=== PATIENT | male | born 1960 | race Caucasian/White ===

== ENCOUNTER → 2019-03-07 | Outpatient (CLI) | payer OTHER ==
[2019-03-07 13:18] LABS: BASO % 1 % (0-3); EOS % 0 % (0-3); HEMATOCRIT 42.8 % (39.0-53.0); HEMOGLOBIN 14.5 g/dL (13.0-17.5); LYMPH # 0.6 x10^3/uL (1.0-4.8); LYMPH % 17 % (24-48); MEAN CORPUSCULAR HEMOGLOBIN 29 pg (25-35); MEAN CORPUSCULAR HGB CONC 34 g/dL (31-37); MEAN CORPUSCULAR VOLUME 86 fL (79-100); MONO # 0.3 x10^3/uL (0.0-1.1); MONO % 9 % (0-9); NEUT # 2.6 x10^3uL (1.8-7.7); NEUT % 74 % (31-73); PLATELET COUNT 102 x10^3/uL (140-400); RED BLOOD COUNT 4.96 x10^6/uL (4.30-5.70); RED CELL DISTRIBUTION WIDTH 14.9 % (11.5-14.5); WHITE BLOOD COUNT 3.6 x10^3/uL (4.0-11.0)
[2019-03-07 13:34] LABS: AMYLASE 58 U/L (25-115); LIPASE 234 U/L (73-393)
[2019-03-07 14:27] LABS: SEDIMENTATION RATE 3 (0-15)
[2019-03-07 14:42] LABS: BILIRUBIN,URINE NEG (NEG); CLARITY,URINE HAZY; COLOR,URINE AMBER
[2019-03-07 14:44] LABS: BACTERIA,URINE 0 /HPF (0-FEW); SQUAMOUS EPITHELIAL CELL,UR FEW /LPF
== END | disposition home or self-care (01) ==
LOC: LAB 12:23
PROVIDERS: ATTEND Physician Assistant
DX: I10 Essential (primary) hypertension (principal); I25.10 Atherosclerotic heart disease of native coronary artery without angina pectoris; R10.13 Epigastric pain; R53.83 Other fatigue; R19.7 Diarrhea, unspecified; R06.00 Dyspnea, unspecified; K21.9 Gastro-esophageal reflux disease without esophagitis
CPT/HCPCS: 36415; 81001; 82150; 83690; 83880; 84443; 85025; 85651; 86677; 87086

== ENCOUNTER 2019-06-15 22:16 | Emergency (ER) | payer OTHER ==
[~2019-06-15] VITALS: Ht 185.4 cm; Wt 134.0 kg
--- NOTE | 2019-06-15 22:42 | PHYS DOC ---
Adult General HPI HPI Patient is a 59 year old male presents with a chief complaint of cough with sputum production chest wall and abdominal discomfort. Patient states symptoms that ongoing for the last 2 days progressively becoming worse. Patient has associated fever and he is afebrile in the ER. Patient took motrin just prior to arrival. Review of Systems Review of Systems Constitutional: Denies fever or chills [] Eyes: Denies change in visual acuity, redness, or eye pain [] HENT: Denies nasal congestion or sore throat [] Respiratory: Denies cough or shortness of breath [] Cardiovascular: No additional information not addressed in HPI [] GI: Denies abdominal pain, nausea, vomiting, bloody stools or diarrhea [] : Denies dysuria or hematuria [] Musculoskeletal: Denies back pain or joint pain [] Integument: Denies rash or skin lesions [] Neurologic: Denies headache, focal weakness or sensory changes [] Endocrine: Denies polyuria or polydipsia [] All other systems were reviewed and found to be within normal limits, except as documented in this note. Physical Exam Physical Exam Constitutional: Well developed, well nourished, no acute distress, non-toxic appearance. [] HENT: Normocephalic, atraumatic, bilateral external ears normal, oropharynx moist, no oral exudates, nose normal. [] Eyes: PERRLA, EOMI, conjunctiva normal, no discharge. [] Neck: Normal range of motion, no tenderness, supple, no stridor. [] Cardiovascular:Heart rate regular rhythm, no murmur [patient's chest is tender diffusely to palpation. Patient's chest discomfort is reproducible with inspiratory and expiratory no wheezing] Lungs & Thorax: Bilateral breath sounds clear to auscultation [] Abdomen: Bowel sounds normal, soft, no tenderness, no masses, no pulsatile masses. [] Skin: Warm, dry, no erythema, no rash. [] Back: No tenderness, no CVA tenderness. [] Extremities: No tenderness, no cyanosis, no clubbing, ROM intact, no edema. [] Neurologic: Alert and oriented X 3, normal motor function, normal sensory function, no focal deficits noted. [] Psychologic: Affect normal, judgement normal, mood normal. [] EKG EKG [] Radiology/Procedures Radiology/Procedures [] Course & Med Decision Making Course & Med Decision Making Pertinent Labs and Imaging studies reviewed. (See chart for details) []Influenza A positive Patient treated with tamiflu and robitusion with codeine. Patient discharged home with Rx tamiflu and robitiussion with codeine. Dragon Disclaimer Dragon Disclaimer This electronic medical record was generated, in whole or in part, using a voice recognition dictation system. Departure Departure: Impression: Primary Impression: Influenza A Disposition: HOME, SELF-CARE Condition: STABLE Referrals: ELDA GARCIA (PCP) Patient Instructions: Influenza A (H1N1) Scripts Codeine Phosphate/Guaifenesin (Guaifen-Codeine 200-20 mg/10Ml) 10 Ml Liquid 10 ML PO Q6-8HRS, #120 LIQUID Prov: KEM BASILIO DO 06/15/19 Oseltamivir Phosphate (TAMIFLU) 75 Mg Capsule 1 CAP PO BID, #10 CAP Prov: KEM BASILIO DO 06/15/19 KEM BASILIO DO Jun 15, 2019 22:42
[2019-06-15] MEDS ORDERED: guaiFENesin/CODEINE 100mg/10mg 5 ML LIQUID PO PRN (22:45)
[2019-06-15 23:01] LABS: INFLUENZA A PATIENT POSITIVE (NEGATIVE); INFLUENZA B PATIENT NEGATIVE (NEGATIVE)
[2019-06-15 23:06] LABS: BASO % 0 % (0-3); EOS % 0 % (0-3); HEMATOCRIT 38.2 % (39.0-53.0); HEMOGLOBIN 12.9 g/dL (13.0-17.5); LYMPH # 0.3 x10^3/uL (1.0-4.8); LYMPH % 9 % (24-48); MEAN CORPUSCULAR HEMOGLOBIN 29 pg (25-35); MEAN CORPUSCULAR HGB CONC 34 g/dL (31-37); MEAN CORPUSCULAR VOLUME 86 fL (79-100); MONO # 0.3 x10^3/uL (0.0-1.1); MONO % 12 % (0-9); NEUT # 2.3 x10^3uL (1.8-7.7); NEUT % 79 % (31-73); PLATELET COUNT 113 x10^3/uL (140-400); RED BLOOD COUNT 4.43 x10^6/uL (4.30-5.70); RED CELL DISTRIBUTION WIDTH 14.8 % (11.5-14.5); WHITE BLOOD COUNT 2.9 x10^3/uL (4.0-11.0)
[2019-06-15 23:11] LABS: CALCIUM 8.3 mg/dL (8.5-10.1); CREATININE 1.2 mg/dL (0.7-1.3); POTASSIUM 3.4 mmol/L (3.5-5.1)
[2019-06-15] MEDS ORDERED: OSELTAMIVIR 75 MG CAPSULE PO ONE (23:15)
[2019-06-15 23:17] LABS: ALBUMIN 3.3 g/dL (3.4-5.0); ALBUMIN/GLOBULIN RATIO 1.3 (1.0-1.7); TOTAL BILIRUBIN 1.8 mg/dL (0.2-1.0); TOTAL PROTEIN 5.8 g/dL (6.4-8.2)
[2019-06-15] MEDS ORDERED: CODE10LI PO (23:17)
[2019-06-15] MEDS ORDERED: OSEL75CA PO (23:17)
[2019-06-15] MEDS ORDERED: KETOROLAC 15 MG/ML VIAL. IVP ONE (23:30)
[2019-06-16] VITALS: BP 115/68
--- NOTE | 2019-06-16 01:43 | EKG ---
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
--- NOTE | 2019-06-16 08:06 | RAD ---
Chest AP portable at 2310: Reason for examination: Cough and flu symptoms. Comparison is made to previous study dated 02/15/2008. The heart size is normal. Mediastinum is unremarkable. Lung dahl are clear. No acute bony abnormalities are seen. Impression: No acute cardiopulmonary disease. Electronically signed by: Kierra Carnes MD (06/16/2019 8:03 AM) [id number]
== END 2019-06-16 00:26 | disposition home or self-care (01) ==
LOC: ER 22:16
DX: J10.1 Influenza due to other identified influenza virus with other respiratory manifestations (principal)
CPT/HCPCS: 36415; 71045; 80053; 84484; 85025; 87804; 93005; 96374; 99285; J1885

== ENCOUNTER 2020-03-17 16:06 | Observation (INO) | payer OTHER ==
[~2020-03-17] VITALS: Ht 185.4 cm; Wt 133.1 kg
[~2020-03-17 16:06] MED LIST: CODE10LI PO; OSEL75CA PO
--- NOTE | 2020-03-17 16:36 | PHYS DOC ---
Past History Past Medical History: CAD, GERD, High Cholesterol, Hypertension, Other Additional Past Medical Histor: hernias(repaired) Past Surgical History: Appendectomy, Cholecystectomy, Other Additional Past Surgical Histo: hernia repairs, colon resection, cardiac stents 2017 Drug Use: None General Adult EDM: Chief Complaint: CHEST PAIN HPI: HPI: Patient is a 60-year-old male who presents with chief complaint of chest pain. Patient about 1130 today began having constant chest pressure as well as back discomfort. Pain is 5 out of 10 in severity. Pain is not made worse or better with anything. Patient said he had some mild diaphoresis and mild nausea but has no shortness of breath above his baseline. Patient has any recent fevers, chills, cough, vomiting or diarrhea. Review of Systems: Review of Systems: Constitutional: Denies fever or chills Eyes: Denies change in visual acuity HENT: Denies nasal congestion or sore throat Respiratory: Denies cough or shortness of breath Cardiovascular: Complains of chest pain but no edema GI: Denies abdominal pain, , vomiting, bloody stools or diarrhea, patient has mild nausea : Denies dysuria Musculoskeletal: Complains of back pain but no joint pain Integument: Denies rash Neurologic: Denies headache, focal weakness or sensory changes Endocrine: Denies polyuria or polydipsia Lymphatic: Denies swollen glands Psychiatric: Denies depression or anxiety Allergies: Allergies: Allergies Coded Allergies Type Severity Reaction Last Updated Verified No Known Drug Allergies 06/15/19 No Physical Exam: PE: Constitutional: Well developed, well nourished, no acute distress, non-toxic ap pearance. [] HENT: Normocephalic, atraumatic, bilateral external ears normal, oropharynx moist, no oral exudates, nose normal. [] Eyes: PERRLA, EOMI, conjunctiva normal, no discharge. [] Neck: Normal range of motion, no tenderness, supple, no stridor. [] Cardiovascular:Heart rate regular rhythm, no murmur [] Lungs & Thorax: Bilateral breath sounds clear to auscultation [] Abdomen: Bowel sounds normal, soft, mild epigastric tenderness without guarding or rebound no masses, no pulsatile masses. [] Skin: Warm, dry, no erythema, no rash. [] Back: No tenderness, no CVA tenderness. [] Extremities: No tenderness, no cyanosis, no clubbing, ROM intact, no edema. [] Neurologic: Alert and oriented X 3, normal motor function, normal sensory function, no focal deficits noted. [] Psychologic: Affect normal, judgement normal, mood normal. [] Current Patient Data: Labs: Laboratory Tests Test 03/17/20 16:50 White Blood Count 4.3 x10^3/uL Red Blood Count 4.75 x10^6/uL Hemoglobin 13.8 g/dL Hematocrit 41.1 % Mean Corpuscular Volume 86 fL Mean Corpuscular Hemoglobin 29 pg Mean Corpuscular Hemoglobin Concent 34 g/dL Red Cell Distribution Width 15.1 % Platelet Count 140 x10^3/uL Neutrophils (%) (Auto) 63 % Lymphocytes (%) (Auto) 27 % Monocytes (%) (Auto) 9 % Eosinophils (%) (Auto) 2 % Basophils (%) (Auto) 0 % Neutrophils # (Auto) 2.7 x10^3uL Lymphocytes # (Auto) 1.1 x10^3/uL Monocytes # (Auto) 0.4 x10^3/uL Eosinophils # (Auto) 0.1 x10^3/uL Basophils # (Auto) 0.0 x10^3/uL Prothrombin Time 11.2 SEC Prothromb Time International Ratio 1.1 D-Dimer (Minerva) 0.43 mg/L Sodium Level 142 mmol/L Potassium Level 3.3 mmol/L Chloride Level 105 mmol/L Carbon Dioxide Level 28 mmol/L Anion Gap 9 Blood Urea Nitrogen 15 mg/dL Creatinine 1.2 mg/dL Estimated GFR (Cockcroft-Gault) 61.8 Glucose Level 101 mg/dL Calcium Level 8.8 mg/dL Magnesium Level 2.0 mg/dL Troponin I Quantitative < 0.017 ng/mL Lipase 303 U/L Ethyl Alcohol Level < 10 mg/dL Current Medications Medications (Trade) Dose Ordered Sig/Munir Route PRN Reason Start Time Stop Time Status Last Admin Dose Admin Aspirin (Aspirin Chewable) 324 mg 1X ONCE PO 03/17/20 16:45 03/17/20 16:46 DC 03/17/20 16:42 Nitroglycerin (Nitrostat) 0.4 mg PRN Q5MIN PRN SL CHEST PAIN 03/17/20 16:45 03/17/20 16:43 Vital Signs: Vital Signs Date Time Temp Pulse Resp B/P (MAP) Pulse Ox O2 Delivery O2 Flow Rate FiO2 03/17/20 16:28 98.1 58 18 115/68 (84) 98 Room Air EKG: EKG: [] EKG interpreted by me normal sinus rhythm rate of 69 normal axis normal intervals, nonspecific ST changes Radiology/Procedures: Radiology/Procedures: [][address] [id number] IMAGING REPORT Signed PATIENT: LILLIANA GARCIA ACCOUNT: [id number] : 1960 LOCATION: ER AGE: 60 SEX: M EXAM STATUS: REG ER ORD. PHYSICIAN: CHRISTINE SOSA MD REASON: chest pain PROCEDURE: PORTABLE CHEST 1V AP chest. HISTORY: Chest pain AP view was taken of the chest. Comparison is made with a study from June. There is retrocardiac atelectasis or infiltrate in the left lung base. A lateral view could be of benefit. Heart is upper normal in size. A small left effusion is possible. IMPRESSION: 1. Left base density, Atelectasis or infiltrate in the left lung base is possible. 2. Lateral view would be of benefit. Electronically signed by: Patricio Coe MD (03/17/2020 5:16 PM) [id number] DICTATED AND SIGNED BY: PATRICIO COE MD DATE: 03/17/20 1716 CC: CHRISTINE SOSA MD; ELDA GARCIA ~ Heart Score: HEART Score for Chest Pain: HEART Score for Chest Pain Response (Comments) Value History Moderately Suspicious 1 ECG Nonspecific Repolarizatio 1 Age >45 - < 65 1 Risk Factors >3 Risk Factors or Hx CAD 2 Troponin < Normal Limit 0 Total 5 Risk Factors: Risk Factors: DM, Current or recent (<one month) smoker, HTN, HLP, family history of CAD, obesity. Risk Scores: Score 0 - 3: 2.5% MACE over next 6 weeks - Discharge Home Score 4 - 6: 20.3% MACE over next 6 weeks - Admit for Clinical Observation Score 7 - 10: 72.7% MACE over next 6 weeks - Early Invasive Strategies Course & Med Decision Making: Course & Med Decision Making Pertinent Labs and Imaging studies reviewed. (See chart for details) [] 60-year-old male presents with a chief complaint of chest pain. Patient has history of coronary artery disease and is better after nitroglycerin. Patient got aspirin in the ER. Patient reassessed and chest pain is improved. Patient will need a admission for rule out SD. Patient's D-dimer is negative, doubt thoracic aortic dissection for embolism. Dragon Disclaimer: Dragon Disclaimer: This electronic medical record was generated, in whole or in part, using a voice recognition dictation system. Departure Departure: Impression: Primary Impression: Substernal chest pain Disposition: ADMITTED INPT THIS HOSP Admitting Physician: Cuong Martinez Condition: STABLE Referrals: ELDA GARCIA (PCP) CHRISTINE SOSA MD Mar 17, 2020 16:36
[2020-03-17] MEDS ORDERED: ASPIRIN CHEWABLE 81 MG TABLET. PO ONE (16:45)
[2020-03-17] MEDS ORDERED: NITROGLYCERIN SUBLINGUAL 0.4 MG BOTTLE OF 25. SL PRN (16:45)
[2020-03-17 17:09] LABS: BASO % 0 % (0-3); EOS # 0.1 x10^3/uL (0.0-0.7); EOS % 2 % (0-3); HEMATOCRIT 41.1 % (39.0-53.0); HEMOGLOBIN 13.8 g/dL (13.0-17.5); LYMPH # 1.1 x10^3/uL (1.0-4.8); LYMPH % 27 % (24-48); MEAN CORPUSCULAR HEMOGLOBIN 29 pg (25-35); MEAN CORPUSCULAR HGB CONC 34 g/dL (31-37); MEAN CORPUSCULAR VOLUME 86 fL (79-100); MONO # 0.4 x10^3/uL (0.0-1.1); MONO % 9 % (0-9); NEUT # 2.7 x10^3uL (1.8-7.7); NEUT % 63 % (31-73); PLATELET COUNT 140 x10^3/uL (140-400); RED BLOOD COUNT 4.75 x10^6/uL (4.30-5.70); RED CELL DISTRIBUTION WIDTH 15.1 % (11.5-14.5); WHITE BLOOD COUNT 4.3 x10^3/uL (4.0-11.0)
--- NOTE | 2020-03-17 17:11 | EKG ---
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
[2020-03-17 17:18] LABS: CALCIUM 8.8 mg/dL (8.5-10.1); CREATININE 1.2 mg/dL (0.7-1.3); GFR 61.8; POTASSIUM 3.3 mmol/L (3.5-5.1)
--- NOTE | 2020-03-17 17:18 | RAD ---
AP chest. HISTORY: Chest pain AP view was taken of the chest. Comparison is made with a study from June. There is retrocardiac atelectasis or infiltrate in the left lung base. A lateral view could be of benefit. Heart is upper normal in size. A small left effusion is possible. IMPRESSION: 1. Left base density, Atelectasis or infiltrate in the left lung base is possible. 2. Lateral view would be of benefit. Electronically signed by: Patricio Coe MD (03/17/2020 5:16 PM) [id number]
[2020-03-17 18:13] LABS: ALBUMIN 3.6 g/dL (3.4-5.0); DIRECT BILIRUBIN 0.3 mg/dL (0.0-0.2); TOTAL BILIRUBIN 2.4 mg/dL (0.2-1.0); TOTAL PROTEIN 6.5 g/dL (6.4-8.2)
[2020-03-17 18:25] LABS: BILIRUBIN,URINE NEG (NEG); CLARITY,URINE CLEAR; COLOR,URINE YELLOW; GLUCOSE,URINE NEG (NEG)
[2020-03-17 18:26] LABS: BACTERIA,URINE 0 /HPF (0-FEW); NITRITE,URINE NEG (NEG); RBC,URINE 0 /HPF (0-2); WBC,URINE 0 /HPF (0-4)
[2020-03-17 19:05] VITALS: BP 125/83
[2020-03-17] MEDS ORDERED: PANT40TA6 PO (20:06)
[2020-03-17] MEDS ORDERED: ATOR40TA59 PO (20:06)
[2020-03-17] MEDS ORDERED: HYDR-2145 PO (20:06)
[2020-03-17] MEDS ORDERED: ASPI-630 PO (20:06)
[2020-03-17] MEDS ORDERED: EZET10TA49 PO (20:12)
[2020-03-17] MEDS ORDERED: ATORVASTATIN CALCIUM 20 MG TABLET PO SCH (21:00)
[2020-03-17] MEDS ORDERED: EZETIMIBE 10 MG TABLET PO SCH (21:00)
--- NOTE | 2020-03-17 22:02 | HP ---
ADMIT DATE: 03/17/2020 ATTENDING PHYSICIAN: Dr. Angelo. CHIEF COMPLAINT: Chest pain. HISTORY OF PRESENT ILLNESS: The patient is a 60-year-old gentleman with new onset of chest pain, started about 11:30 today, constant chest pressure as well as back discomfort, rated 5/10 in severity. No recent exertion. He had some mild diaphoresis and nausea, but no shortness of breath. No recent trauma, no recent exposure, fevers or chills. He does have a cardiac history with a cardiac stent placed in 2017. He sees a telephone operator receptionist at [facility]. Other risk factors including known coronary artery disease with previous stents, gastroesophageal reflux disease, hyperlipidemia, hypertension, hernia repair. PAST SURGICAL HISTORY: Cholecystectomy and appendectomy. ALLERGIES: He has no known drug allergies. CURRENT MEDICINES: Include the following: He was taking aspirin daily, Lipitor, guaifenesin, Zetia, hydrochlorothiazide, Tamiflu, and Protonix. SOCIAL HISTORY: He is a nonsmoker, nondrinker. 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 FAMILY HISTORY: Mom of complications of Alzheimer's. Father of stroke at age 81. REVIEW OF SYSTEMS: Significant for the localized symptoms starting earlier today. No recent travel. No trauma. He denied any associated symptoms. All other systems reviewed and turned to be negative. PHYSICAL EXAMINATION: GENERAL: When I saw her, this is a pleasant, middle-aged gentleman. INITIAL VITAL SIGNS: Showed a blood pressure of 125/83, pulse was 51 and regular, temperature 98.8 degrees Fahrenheit, oxygen saturation 95% on room air. HEENT: Head is without trauma. Pupils are reactive. Sclerae nonicteric. Oropharynx clear. NECK: Supple, no bruits identified. LUNGS: Otherwise clear. CARDIOVASCULAR: Showed regular heart tones. No gallops. Peripheral pulses are palpable and full. ABDOMEN: Soft, nontender, no organomegaly. Bowel sounds are hypoactive. EXTREMITIES: Showed no cyanosis or edema. SKIN: Warm and dry. NEUROLOGIC FUNCTION: Focally intact. No deficits. PERTINENT LABORATORY STUDIES: Initial chest x-ray showed some atelectasis in the left lung base. He had no other symptoms. Hemoglobin is 13.8 g, white count 4300. The first set of cardiac enzymes were negative for coronary ischemia. Bilirubin slightly elevated at 2.4, etiology is uncertain. Sodium 142, potassium 3.3 mEq. ASSESSMENT: 1. A 60-year-old gentleman with atypical chest pain. 2. Known coronary artery disease with previous stents 3 years ago. 3. Hyperlipidemia. 4. Slight elevation of bilirubin, etiology to be determined. 5. Hypertension. PLAN: 1. Observation status. 2. Serial cardiac enzymes. 3. If elevated, he can have a Cardiology consult, but he otherwise would prefer to see his telephone operator receptionist. Home meds will be continued. LANDRY ANGELO MD DR: MARGARITO/rancho JOB#: [id number] / [id number] ELDA Padron
--- NOTE | 2020-03-17 23:25 | NUR ---
Pt admitted to [facility] via EMS accompanied by ER staff. Pt ambulated from gurney to bed w/o difficulty. VS obtained. POC discussed. Pt verbalized understanding. Med list was obtained, reconciled, and restarted. Pt had no complaint of chest pain during time of assessment but did state "There is still a little chest pressure." Pt expressed how he felt as if it was going away. Pt is now resting comfortably in room w/ call light in reach.
[2020-03-18 00:12] VITALS: BP 102/66
[2020-03-18 05:47] VITALS: BP 112/75
--- NOTE | 2020-03-18 08:00 | PDOC2 ---
CARDIAC CONSULT DATE OF CONSULT DOS: DATE: 03/18/20 TIME: 07:56 REASON FOR CONSULT Reason for Consult Chest pain REFERRING PHYSICIAN Referring Physician Dr. Pelletier SOURCE Source: Chart review, Patient HPI History of Present Illness This is a 60 yo male who presented secondary to chest pain. Patient reports he has been experiencing intermittent chest pain for the last couple of weeks. Describes as pressure in his central chest. No specific precipitating or wo rsening factors. Yesterday, pain became more intense. Was having significant pain in his upper back, between the shoulder blades. Was associated with nausea and diaphoresis. No palpitations or SOA yesterday. Given h/o CAD, patient was concerned for IL so he came to the ED for further evaluation and treatment. PAST MEDICAL HISTORY Cardiovascular: CAD, HTN, hyperipidemia Pulmonary: Other (CHULA) GI: GERD PAST SURGICAL HISTORY Past Surgical History PCI/stent to RCA, colectomy FAMILY HISTORY Family History: Coronary Artery Disease, Hypertension SOCIAL HISTORY Smoke: No ALCOHOL: none Drugs: None Lives: with Family CURRENT MEDICATIONS Current Medications Current Medications Aspirin (Aspirin Chewable) 324 mg 1X ONCE PO Last administered on 03/17/20at 16:42; Start 03/17/20 at 16:45; Stop 03/17/20 at 16:46; Status DC Nitroglycerin (Nitrostat) 0.4 mg PRN Q5MIN PRN SL CHEST PAIN Last administered on 03/17/20at 16:43; Start 03/17/20 at 16:45 Aspirin (Aspirin Chewable) 81 mg DAILY PO ; Start 03/18/20 at 09:00 Hydrochlorothiazide (Hydrodiuril) 25 mg DAILY PO ; Start 03/18/20 at 09:00 Pantoprazole Sodium (Protonix) 40 mg DAILY PO ; Start 03/18/20 at 09:00 Atorvastatin Calcium (Lipitor) 40 mg QHS PO Last administered on 03/17/20at 20:55; Start 03/17/20 at 21:00 EZETIMIBE (Zetia) 10 mg QHS PO Last administered on 03/17/20at 20:55; Start 03/17/20 at 21:00 Active Scripts Active Guaifen-Codeine 200-20 mg/10Ml (Codeine Phosphate/Guaifenesin) 10 Ml Liquid 10 Ml PO Q6-8HRS Tamiflu (Oseltamivir Phosphate) 75 Mg Capsule 1 Cap PO BID Reported Ezetimibe 10 Mg Tablet 10 Mg PO QHS Aspirin 81 Mg Tab.chew 81 Mg PO DAILY Atorvastatin Calcium 40 Mg Tablet 1 Tab PO QHS Pantoprazole Sodium 40 Mg Tablet.dr 40 Mg PO DAILY Hydrochlorothiazide Tablet (Hydrochlorothiazide) 25 Mg Tablet 25 Mg PO DAILY ALLERGIES Allergies: Coded Allergies: No Known Drug Allergies (Unverified , 06/15/19) ROS Review of Systems 14 point ROS conducted with pertinent positives noted above in hPI PHYSICAL EXAM General: Alert, Oriented X3, Cooperative, No acute distress HEENT: Atraumatic, Mucous membr. moist/pink Lungs: Clear to auscultation, Normal air movement Heart: Regular rate, Normal S1 Abdomen: Soft, No tenderness Extremities: No edema, Normal pulses Neuro: Normal speech, Normal tone, Sensation intact Psych/Mental Status: Mental status NL, Mood NL MUSCULOSKELETAL: Osteoarthritic changes both hands VITALS Vital Signs Vital Signs Date Time Temp Pulse Resp B/P (MAP) Pulse Ox O2 Delivery O2 Flow Rate FiO2 03/18/20 05:47 97.6 50 20 112/75 (87) 98 Room Air LABS LABS Laboratory Tests Test 03/17/20 16:50 03/17/20 17:59 03/17/20 20:20 03/17/20 23:59 White Blood Count 4.3 x10^3/uL (4.0-11.0) Red Blood Count 4.75 x10^6/uL (4.30-5.70) Hemoglobin 13.8 g/dL (13.0-17.5) Hematocrit 41.1 % (39.0-53.0) Mean Corpuscular Volume 86 fL (79-100) Mean Corpuscular Hemoglobin 29 pg (25-35) Mean Corpuscular Hemoglobin Concent 34 g/dL (31-37) Red Cell Distribution Width 15.1 % (11.5-14.5) Platelet Count 140 x10^3/uL (140-400) Neutrophils (%) (Auto) 63 % (31-73) Lymphocytes (%) (Auto) 27 % (24-48) Monocytes (%) (Auto) 9 % (0-9) Eosinophils (%) (Auto) 2 % (0-3) Basophils (%) (Auto) 0 % (0-3) Neutrophils # (Auto) 2.7 x10^3uL (1.8-7.7) Lymphocytes # (Auto) 1.1 x10^3/uL (1.0-4.8) Monocytes # (Auto) 0.4 x10^3/uL (0.0-1.1) Eosinophils # (Auto) 0.1 x10^3/uL (0.0-0.7) Basophils # (Auto) 0.0 x10^3/uL (0.0-0.2) Prothrombin Time 11.2 SEC (9.4-11.4) Prothromb Time International Ratio 1.1 (0.9-1.1) D-Dimer (Minerva) 0.43 mg/L (0.00-0.50) Sodium Level 142 mmol/L (136-145) Potassium Level 3.3 mmol/L (3.5-5.1) Chloride Level 105 mmol/L (98-107) Carbon Dioxide Level 28 mmol/L (21-32) Anion Gap 9 (6-14) Blood Urea Nitrogen 15 mg/dL (8-26) Creatinine 1.2 mg/dL (0.7-1.3) Estimated GFR (Cockcroft-Gault) 61.8 Glucose Level 101 mg/dL (70-99) Calcium Level 8.8 mg/dL (8.5-10.1) Magnesium Level 2.0 mg/dL (1.8-2.4) Total Bilirubin 2.4 mg/dL (0.2-1.0) Direct Bilirubin 0.3 mg/dL (0.0-0.2) Aspartate Amino Transf (AST/SGOT) 30 U/L (15-37) Alanine Aminotransferase (ALT/SGPT) 37 U/L (16-63) Alkaline Phosphatase 84 U/L (46-116) Troponin I Quantitative < 0.017 ng/mL (0-0.055) < 0.017 ng/mL (0-0.055) < 0.017 ng/mL (0-0.055) Total Protein 6.5 g/dL (6.4-8.2) Albumin 3.6 g/dL (3.4-5.0) Lipase 303 U/L (73-393) Ethyl Alcohol Level < 10 mg/dL (0-10) Urine Collection Type Unknown Urine Color Yellow Urine Clarity Clear Urine pH 5.5 Urine Specific [place] >=1.030 Urine Protein Neg (NEG-TRACE) Urine Glucose (UA) Neg mg/dL (NEG) Urine Ketones (Stick) Neg mg/dL (NEG) Urine Blood Neg (NEG) Urine Nitrite Neg (NEG) Urine Bilirubin Neg (NEG) Urine Urobilinogen Dipstick 1.0 mg/dL (0.2 mg/dL) Urine Leukocyte Esterase Neg (NEG) Urine RBC 0 /HPF (0-2) Urine WBC 0 /HPF (0-4) Urine Squamous Epithelial Cells None /LPF Urine Bacteria 0 /HPF (0-FEW) ECHOCARDIOGRAM Echocardiogram 03/27/18 - 2-D + DOPPLER ECHOCARDIOGRAM Interpretation Summary LVEF=65% Bordrline Concentric LVH Normal LV Chamber Size Mild Right Ventricular Dilataion And Hypokinesis: See Contrast View Series # 80- 82 and #86, #88 Mild Left Atrial Filatation Valves Are Unremarkable Trace PFO Left To Right: Equivocal No Pericardial Effusion TAPSE=2.4cm STRESS TEST Stress Test 07/15/19 - Procedure: D-SPECT MULTI GATED THALLIUM REGADENOSON MPI STRESS TEST FINDINGS: Pharmacological Stress Electrocardiogram: The patient's resting heart rate was 62 bpm and the resting blood pressure was 138/80. The patients peak stress heart rate was 97 bpm and the peak stress blood pressure was 126/68. With pharmacological stress the patient noted 2-4 out of 10 chest pain. Baseline electrocardiogram shows normal sinus rhythm. Under pharmacological stress there are no diagnostic EKG changes. Conclusion: This is a nonischemic regadenoson stress electrocardiogram. HEART CATH Heart Cath CORONARY ARTERY ANATOMY: The left main bifurcates into LAD and left circumflex originates normally from the left coronary cusp without significant disease. The LAD has a proximal 20% stenosis. Type 3 LAD that wraps around the apex. It gives rise to multiple septal branches. No significant atherosclerotic disease was noted. Left circumflex nondominant vessel gives rise to 2 big OM branches. There was 50% to 60% mid left circumflex disease with an FFR of 0.96 at maximal hyperemia. No intervention was done and the lesion were unchanged from before. RCA has a 95% mid and 60% distal mid RCA disease, now status post balloon angioplasty and drug-eluting stent, 4.0 x 38 Xience Joelle postdilated to 4.5 with reduction of stenosis 0% LUIS-3 flow distally. It is a dominant vessel that bifurcates into PDA and the posterolateral. CONCLUSION: 95% mid RCA disease, status post balloon angioplasty and drug-eluting stent, 4.0 x 38 Xience Joelle postdilated to 4.5 mm. 50% to 60% left circumflex disease with an FFR of 0.96, nonsignificant. 20% proximal LAD disease. Hemostasis achieved with TR band to the right radial artery access site. RECOMMENDATION: Aspirin daily indefinitely. Clopidogrel for 6 months. Date: 12/15/2017 ASSESSMENT/PLAN Assessment/Plan 1. Chest pain, mixed features; AMI ruled out 2. CAD s/p PCI/NAYELI to the RCA. Follows with MACDr. Garcia. MPI 07/18 without evidence of ischemia as noted above. Cath 2017 with 95% mid RCA disease s/p PCI/NAYELI. Also noted was 50% to 60% LCx disease with an FFR of 0.96, nonsignificant. 3. Hypertension; controlled 4. Hyperlipidemia; statin 5. Bradycardia, sinus; Mean near 55. Baseline per chart review 6. CHULA 7. GERD Recommendations Secondary prevention measures including ASA/statin No BB with bradycardia Lipids Given presenting symptoms and history/risk factors, discussed further ischemic evaluation on an inpatient versus outpatient basis. Patient decided to proceed with inpatient transfer to [facility] for definitive evaluation with left heart catheterization. R/b/a were discussed and he is agreeable to proceed. Will transfer to [facility] and obtain rapid COVID prior to proceeding Keep NPO. GM JULIAN APRN Mar 18, 2020 08:00
[2020-03-18 08:03] LABS: CALCIUM 8.7 mg/dL (8.5-10.1); CREATININE 1.1 mg/dL (0.7-1.3); GFR 68.3; POTASSIUM 3.3 mmol/L (3.5-5.1)
[2020-03-18] MEDS: hydroCHLOROthiazide 25 MG TABLET PO SCH ×2 (08:35→09:00)
[2020-03-18] MEDS ORDERED: ASPIRIN CHEWABLE 81 MG TABLET. PO SCH (09:00)
[2020-03-18] MEDS ORDERED: PANTOPRAZOLE 40 MG TABLET. PO SCH (09:00)
--- NOTE | 2020-03-18 10:03 | NUR ---
NURSING NOTE: DISCHARGE PT DISCHARGED VIA EMS TO [facility] FOR CARDIAC CATH. PT STABLE, REPORT CALLED TO [facility], PACKET SENT WITH PT. WRITTEN AND VERBAL DISCHARGE INSTRUCTIONS GIVEN, VERBAL UNDERSTANDING RECEIVED. NO QUESTIONS/COMPLICATIONS. RICHIE REYNAGA
== END 2020-03-18 10:10 | disposition short-term general hospital (02) ==
LOC: ER 16:06 → 1 SOUTH 18:52 → INTOOBSV 18:52
PROVIDERS: ADMIT Hospitalist; ATTEND Hospitalist
DX: R07.89 Other chest pain (principal); I25.10 Atherosclerotic heart disease of native coronary artery without angina pectoris; I10 Essential (primary) hypertension; E78.5 Hyperlipidemia, unspecified; E80.6 Other disorders of bilirubin metabolism; R00.1 Bradycardia, unspecified; K21.9 Gastro-esophageal reflux disease without esophagitis; E78.00 Pure hypercholesterolemia, unspecified; G47.33 Obstructive sleep apnea (adult) (pediatric); Z90.49 Acquired absence of other specified parts of digestive tract; Z95.1 Presence of aortocoronary bypass graft; Z98.890 Other specified postprocedural states; Z79.82 Long term (current) use of aspirin; Z79.899 Other long term (current) drug therapy
CPT/HCPCS: 36415; 71045; 80048; 80061; 80076; 81001; 83690; 83735; 84484; 85025; 85379; 85610; 93005; 99285; G0378; G0480; G0379

== ENCOUNTER 2021-05-16 10:59 | Emergency (ER) | payer BC, MEDICARE, OTHER ==
[~2021-05-16] VITALS: Ht 185.4 cm; Wt 135.0 kg
[~2021-05-16 10:59] MED LIST changes: +ASPI-630 PO; +ATOR40TA59 PO; +EZET10TA49 PO; +HYDR-2145 PO; +PANT40TA6 PO
--- NOTE | 2021-05-16 11:05 | PHYS DOC ---
Past History Past Medical History: CAD, GERD, High Cholesterol, Hypertension, Other Additional Past Medical Histor: hernias(repaired) Past Surgical History: Appendectomy, Cholecystectomy, Other Additional Past Surgical Histo: hernia repairs, colon resection, cardiac stents 2016 Drug Use: None Adult General HPI HPI Patient is a 61-year-old male who presents with a chief complaint of fevers at home, cough, sore throat, congestion and body aches for the last couple days. has similar symptoms at home. Patient works at the [employer] and thinks other people have same symptoms there. States he is eating and drinking normally. States he is making urine and stool normally for him. Wants a COVID swab. Review of Systems Review of Systems Review of systems otherwise unremarkable except noted in HPI Allergies Allergies Allergies Coded Allergies Type Severity Reaction Last Updated Verified No Known Drug Allergies 06/15/19 No Physical Exam Physical Exam Constitutional: Well developed, well nourished, no acute distress, non-toxic appearance. [] HENT: Normocephalic, atraumatic, bilateral external ears normal, oropharynx moist, no oral exudates, nose normal. [] Eyes: conjunctiva normal, no discharge. [] Neck: Normal range of motion, no tenderness, supple, no stridor. [] Cardiovascular:Heart rate regular rhythm, no murmur [] Lungs & Thorax: Bilateral breath sounds clear to auscultation [] Abdomen: soft, no tenderness, no masses, no pulsatile masses. [] Skin: Warm, dry, no erythema, no rash. [] Neurologic: Alert and oriented X 3, normal motor function, normal sensory function, no focal deficits noted. [] Psychologic: Affect normal, judgement normal, mood normal. [] EKG EKG [] Radiology/Procedures Radiology/Procedures [] Heart Score C/O Chest Pain: No Risk Factors: Risk Factors: DM, Current or recent (<one month) smoker, HTN, HLP, family history of CAD, obesity. Risk Scores: Risk Factors: DM, Current or recent (<one month) smoker, HTN, HLP, family history of CAD, obesity. Course & Med Decision Making Course & Med Decision Making Patient is a 61-year-old male who presents with fevers at home, cough, sore throat congestion and body aches who wants a COVID swab Concerning. Physical exam noted above. COVID swab pending. Discussed COVID education and quarantine. Advised to quarantine for his as well since she has symptoms. Advised to follow-up Monday with primary care physician update on ED visit. Discussed symptom control at home. Gave return precautions to the ED. Patient grateful, verbalized understanding and agreed with plan of discharge. [] Dragon Disclaimer Dragon Disclaimer This electronic medical record was generated, in whole or in part, using a voice recognition dictation system. Departure Departure: Impression: Primary Impression: Viral syndrome Additional Impression: Person under investigation for COVID-19 Disposition: HOME / SELF CARE / HOMELESS Condition: GOOD Referrals: ELDA GARCIA (PCP) Additional Instructions: You have been tested for or diagnosed with COVID-19. It is an infection caused by a new type of coronavirus. COVID-19 will cause cold-like or mild flu symptoms in most. It can cause more severe symptoms like problems breathing in some. There is no treatment for COVID-19. The body will clear the infection over time. Self-care will help to ease discomfort. Steps to Take: Self-Care Rest as needed. Healthy habits may help you feel better. Steps include: Choose healthy foods including fruits and vegetables. Drink water throughout the day. Get plenty of sleep each night. If you smoke, try to quit. It may ease breathing. Avoid alcohol. Keep Others Healthy The virus can spread to others. Droplets are released every time you sneeze or cough. The droplets can get into the mouth, nose, or eyes of people near you and lead to infection. To lower the chances of spreading COVID-19 to others: Stay at home until your doctor has said it is safe to leave. If you tested positive this will mean staying isolated until both of the following are true: At least 7 days have passed since the start of illness. You are free of fever for at least 72 hours without the use of medicine. During this time: - Avoid public areas, events, or transportation. Do not return to work or school until your doctor has said it is safe to do so. - Call ahead if you need to go to a medical center. Let them know you may have COVID-19. It will help them guide you where to go. They may also ask you to wear a facemask when you come to the office. - If you call for emergency medical services, let them know you may have COVID- 19. While at home: - Try to avoid close contact with others. Stay about 6 feet away. - If possible, spend most of your time in a separate room from others. - Use a face mask if you will be in close contact with others such as sharing a room or vehicle. - Have someone wipe down common surfaces in the home. Use household pizzamaker every day on areas like doorknobs, counters, or sinks. - Cough or sneeze into a tissue. Throw the tissue away right after use. If a tissue is not available, cough or sneeze into your elbow. - Wash your hands often. Wash them after sneezing or coughing. Use soap and water and wash for at least 20 seconds. Alcohol based hand machine rug cleaner can be used if soap and water is not available. - Do not prepare food for others. Avoid sharing personal items like forks, spoons, or toothbrushes. - Avoid close contact with pets while you are sick. There is no evidence of the virus passing to pets. This is a safety step until more is known about this virus. Isolation can be frustrating. Social interaction can help. Keep in touch with friends and family through phone and tech options. You can still interact with others in your home, just keep a safe distance of about 6 feet. Follow-up: Your doctors office will check in with you to see if there are any changes in your health. You may be asked to keep track of symptoms to share with them. They will also let you know when you are clear to be in public again. Problems to Look Out For: Contact your doctor if your recovery is not going as you expect. Get emergency care if you have problems such as: - Trouble breathing - Nonstop chest pain or pressure - Changes in awareness, confusion, or problems waking - Lips or face have bluish color - Worsening of symptoms If you think you have an emergency, call for emergency medical services right away. As taken from [facility] Problem Qualifiers MEMO SHERIFF MD May 16, 2021 11:05
[2021-05-16 11:23] VITALS: BP 125/72
--- NOTE | 2021-05-17 12:21 | NUR ---
COVID RESULTS GIVEN TO PATIENT BY JONATHAN QUIROZ
== END 2021-05-16 12:19 | disposition home or self-care (01) ==
LOC: ER 10:59
DX: U07.1 COVID-19 (principal); B34.9 Viral infection, unspecified; I25.10 Atherosclerotic heart disease of native coronary artery without angina pectoris; K21.9 Gastro-esophageal reflux disease without esophagitis; E78.00 Pure hypercholesterolemia, unspecified; I10 Essential (primary) hypertension
CPT/HCPCS: 99283; C9803; U0003